=== PATIENT | female | born 1985 | race Two or more races ===

== ENCOUNTER 2017-04-13 22:12 | Emergency (ER) | payer MEDICAID ==
[~2017-04-13] VITALS: Ht 162.6 cm; Wt 64.0 kg
[2017-04-13] MEDS ORDERED: TRAZ50TA18 PO (23:28)
[2017-04-13] MEDS ORDERED: SERT100T PO (23:28)
[2017-04-13 23:42] LABS: HCG UR OBC PASS
[2017-04-14 00:11] VITALS: BP 119/80
== END 2017-04-14 00:27 | disposition home or self-care (01) ==
LOC: ED 22:56
DX: R05 Cough (principal)
CPT/HCPCS: 81003; 81025; 99284